=== PATIENT | female | born 1960 | race Caucasian/White ===

== ENCOUNTER → 2017-01-16 | Outpatient (CLI) | payer BC ==
[2017-01-16 19:47] LABS: Basophils # (A) 0.1 k/uL (0-0.2); Basophils % (A) 1 %; CH 30.6; CHCM 33.1; Eosinophils # (A) 0.1 k/uL (0-0.7); Eosinophils % (A) 3 %; HCT 44.6 % (34.0-46.0); HDW 2.51; HGB 14.5 gm/dL (11.4-16.0); Luc # (Auto) 0.13; Luc % (Auto) 3; Lymphocytes # (A) 1.3 k/uL (1.0-4.8); Lymphocytes % (A) 29 %; MCH 30.2 pg (25.0-35.0); MCHC 32.6 g/dL (31.0-37.0); MCV 92.9 fL (80.0-100.0); Mean Platelet Volume 7.3; Monocytes # (A) 0.2 k/uL (0-1.0); Monocytes % (A) 5 %; Neutrophils # (A) 2.6 k/uL (1.3-7.7); Neutrophils % (A) 58 %; RDW 12.3 % (11.5-15.5); WBC 4.5 k/uL (3.8-10.6); WBC (Perox) 4.55
[2017-01-16 19:59] LABS: ALT 27 U/L (9-52); AST 19 U/L (14-36); Alkaline Phosphatase 66 U/L (38-126); Anion Gap 8 mmol/L; Blood Urea Nitrogen 12 mg/dL (7-17); Calcium 9.8 mg/dL (8.4-10.2); Carbon Dioxide 29 mmol/L (22-30); Chloride 106 mmol/L (98-107); Cholesterol 221 mg/dL (<200); Glucose 100 mg/dL (74-99); HDL Cholesterol 66 mg/dL (40-60); Non-African American GFR(MDRD) >60 (>60 ml/min/1.73 sqM); Potassium 4.6 mmol/L (3.5-5.1); Sodium 143 mmol/L (137-145); Total Bilirubin 0.7 mg/dL (0.2-1.3); Total Protein 6.5 g/dL (6.3-8.2); Triglycerides 112 mg/dL (<150)
== END | disposition home or self-care (01) ==
LOC: MMGSC 09:29
PROVIDERS: ATTEND Family Medicine
DX: E78.5 Hyperlipidemia, unspecified (principal)
CPT/HCPCS: 36415; 80053; 80061; 84443; 85025

== ENCOUNTER → 2017-08-17 | Outpatient (CLI) | payer BC | END | disposition home or self-care (01) | LOC: LABPAT 10:39 | PROVIDERS: ATTEND Orthopaedic Surgery | DX: Z01.812 Encounter for preprocedural laboratory examination (principal); M16.11 Unilateral primary osteoarthritis, right hip | CPT/HCPCS: 86850; 86900; 86901; 87070 ==

== ENCOUNTER → 2017-09-12 | Outpatient (CLI) | payer BC ==
[2017-09-12 19:03] LABS: Cholesterol 208 mg/dL (<200); HDL Cholesterol 56 mg/dL (40-60)
== END ==
LOC: MMGSC 12:12
PROVIDERS: ATTEND Family Medicine
DX: E78.5 Hyperlipidemia, unspecified (principal)
CPT/HCPCS: 36415; 80061

== ENCOUNTER → 2018-01-10 | Outpatient (CLI) | payer BC ==
[2018-01-10 18:43] LABS: Cholesterol 312 mg/dL (<200); HDL Cholesterol 71 mg/dL (40-60); LDL Cholesterol,Calculated 215 mg/dL (0-99); Triglycerides 129 mg/dL (<150)
== END | disposition home or self-care (01) ==
LOC: MMGSC 16:40
PROVIDERS: ATTEND Family Medicine
DX: E78.5 Hyperlipidemia, unspecified (principal)
CPT/HCPCS: 36415; 80061

== ENCOUNTER → 2018-04-30 | Outpatient (CLI) | payer BC ==
--- NOTE | 2018-04-30 10:28 | US ---
EXAMINATION TYPE: US abdomen complete DATE OF EXAM: 04/30/2018 COMPARISON: NONE CLINICAL HISTORY: R10.12 ABD PAIN. Pt states LUQ pain on/off x many years, has recently gotten worse, GB removed EXAM MEASUREMENTS: Liver Length: 17.6 cm CBD: 0.7 cm Spleen: 9.9 cm Right Kidney: 9.5 x 4.3 x 4.6 cm Left Kidney: 10.3 x 4.5 x 4.8 cm Pancreas: wnl Liver: wnl Gallbladder: Surgically absent Evidence for sonographic Gonzalez's sign: No CBD: wnl for post lory Spleen: Numerous probable granulomas Right Kidney: wnl Left Kidney: wnl Upper IVC: wnl Abd Aorta: wnl No abnormality visualized to account for pt's symptoms The liver is homogenous. The intrahepatic portion of the IVC and proximal abdominal aorta are within normal limits. The visualized portions of the pancreas are homogenous. The spleen is unremarkabl e. Kidneys are symmetric and free of hydronephrosis. No renal lesions are seen. 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
== END | disposition home or self-care (01) ==
LOC: RADUSWWP 08:11
PROVIDERS: ATTEND Family Medicine
DX: K83.8 Other specified diseases of biliary tract (principal); Z90.49 Acquired absence of other specified parts of digestive tract
CPT/HCPCS: 76700

== ENCOUNTER 2022-04-15 22:44 | Emergency (ER) | payer BC, OTHER ==
[2022-04-15 23:00] VITALS: BP 147/74; PULSE 74; RESP 18; TEMP 97.8
[2022-04-16] MEDS ORDERED: ACETAMINOPHEN TAB 500 MG TAB PO STA (00:07)
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
[2022-04-16] MEDS ORDERED: HYDROcodone/APAP 5-325MG 1 EACH TAB PO STA (01:25)
[2022-04-16] MEDS ORDERED: ACET/COD 300 MG/30 MG STARTER PACK 6 TAB BTL PO STA (01:26)
[2022-04-16] MEDS ORDERED: CYCLOBENZAPRINE 10 MG TAB PO STA (01:26)
[2022-04-16] MEDS ORDERED: CYCLOBENZAPRINE 10MG STARTER 3 TAB BTL PO STA (01:26)
== END 2022-04-16 01:54 | disposition home or self-care (01) ==
LOC: EC 22:44
DX: S16.1XXA Strain of muscle, fascia and tendon at neck level, initial encounter (principal); S39.012A Strain of muscle, fascia and tendon of lower back, initial encounter; S09.90XA Unspecified injury of head, initial encounter; E78.5 Hyperlipidemia, unspecified; Z91.018 Allergy to other foods; Z91.09 Other allergy status, other than to drugs and biological substances; Z88.6 Allergy status to analgesic agent; Z88.8 Allergy status to other drugs, medicaments and biological substances; V89.2XXA Person injured in unspecified motor-vehicle accident, traffic, initial encounter
CPT/HCPCS: 70450; 72125

== ENCOUNTER 2024-04-15 08:52 | Day surgery (SDC) | payer BC ==
[2024-04-15 09:28] VITALS: TEMP 98.2
[2024-04-15] MEDS: IV FLUID CONTINUATION 1,000 ML IV ONE (09:35)
[2024-04-15] MEDS: LACTATED RINGERS 1,000 ML IV SCH (09:35)
[2024-04-15] MEDS ORDERED: LIDOCAINE 2% (PF) 20 MG/ML 5 ML VIAL ONE (09:57)
[2024-04-15] MEDS ORDERED: PROPOFOL 10 MG/ML 20 ML VIAL IV ONE (09:57)
--- NOTE | 2024-04-15 10:15 | P.PCN ---
Date of Procedure: 04/15/24 Procedure(s) Performed: BRIEF HISTORY: Patient is a 63-year-old pleasant white female scheduled for an elective colonoscopy as a part of evaluation by history of colon polyps. PROCEDURE PERFORMED: Colonoscopy with biopsy. PREOPERATIVE DIAGNOSIS: History of colon polyps. IV sedation per Anesthesia. PROCEDURE: After informed consent was obtained, the patient, was brought into the endoscopy unit. IV sedation was administered by Anesthesia under continuous monitoring. Digital rectal examination was normal. Initially the Olympus CF-160 flexible video colonoscope was then inserted in the rectum, gradually advanced into the cecum without any difficulty. Careful examination was performed as the scope was gradually being withdrawn. Ileocecal valve and the appendiceal orifice were visualized and appeared normal. Prep was excellent. Mucosa of the cecum, ascending colon, transverse colon, appeared normal. The descending colon there was a 4 mm polyp that was removed by cold biopsy. Rest of the descending colon, sigmoid colon, and rectum appeared normal. Retroflexion was performed in the rectum and no lesions were seen. The patient tolerated the procedure well. IMPRESSION: 4 mm descending colon polyp status post removal by cold biopsy Rest of the colon appeared normal RECOMMENDATIONS: Findings of this examination were discussed with the patient as well as her family. She was advised to follow with the biopsy results and have repeat colonoscopy in 5 years..
[2024-04-15 10:21] VITALS: RESP 16
[2024-04-15 10:40] VITALS: BP 140/81; PULSE 53
== END 2024-04-15 10:59 | disposition home or self-care (01) ==
LOC: ORWHC2ENDO 08:52
PROVIDERS: ATTEND Internal Medicine Gastroenterology
DX: Z12.11 Encounter for screening for malignant neoplasm of colon (principal); D12.4 Benign neoplasm of descending colon; E78.5 Hyperlipidemia, unspecified; M79.7 Fibromyalgia; M19.90 Unspecified osteoarthritis, unspecified site; Z86.010 Personal history of colon polyps; Z79.899 Other long term (current) drug therapy; Z88.5 Allergy status to narcotic agent
CPT/HCPCS: 88305; 45380; J2704; J2001

== ENCOUNTER → 2025-04-28 | Outpatient (CLI) | payer BC ==
--- NOTE | 2025-04-28 11:19 | MM ---
Reason for Exam: Screening (asymptomatic). Last mammogram was performed 1 year(s) and 3 month(s) ago. Patient History: Menarche at age 10. First Full-Term at age 22. Postmenopausal. Patient has history of breast feeding. Risk Values: Aretha 5 year model risk: 1.5%. NCI Lifetime model risk: 5.4%. Prior Study Comparison: 03/13/2018 Bilateral Screening Mammogram, [facility] . 04/29/2019 Bilateral Screening Mammogram, [facility] . 10/13/2020 Bilateral Screening Mammogram, [facility] . 02/07/2023 Bilateral Screening Mammogram, [facility] . 02/11/2024 Bilateral Screening Mammogram, [facility] . Tissue Density: There are scattered areas of fibroglandular density. Findings: Analyzed By CAD. There is no suspicious group of microcalcifications or new suspicious mass in either breast. Overall Assessment: Negative, BI-RAD 1 Management: Screening Mammogram of both breasts in 1 year. Patient should continue monthly self-breast exams. A clinical breast exam by your physician is recommended on an annual basis. This exam should not preclude additional follow-up of suspicious palpable abnormalities. Note on Aretha scores and lifetime risk: 1. A Aretha score greater than 3% is considered moderate risk. If this is the case, consider specialist referral to assess eligibility for a risk reducing agent. 2. If overall lifetime risk for the development of breast cancer is 20% or higher, the patient may qualify for future screening with alternating mammogram and breast MRI. [facility], , 04/28/2025 11:16 AM. Electronically signed and approved by: Chip Love M.D. Radiologist
== END | disposition home or self-care (01) ==
LOC: RADMAMWWP 08:00
PROVIDERS: ATTEND Family Medicine
DX: Z12.31 Encounter for screening mammogram for malignant neoplasm of breast (principal); R92.323 Mammographic fibroglandular density, bilateral breasts; Z78.0 Asymptomatic menopausal state
CPT/HCPCS: 77063; 77067